=== PATIENT | male | born 1970 | race Caucasian/White ===

== ENCOUNTER 2023-10-20 20:16 | Emergency (ER) | payer OTHER, SELFPAY ==
[2023-10-20] VITALS (11 sets, daily range): BP systolic 116–182; BP diastolic 66–96; BMI 27.6
[2023-10-20 20:37] LABS: % Basophils 0.5 % (0-2); % Immature Granulocytes 0.2 % (0-0.5); % Lymphocytes 9.4 % (20.5-51.1); % Monocytes 8.8 % (1.7-9.3); % Neutrophils 81.1 % (42.2-75.2); Absolute Lymphocytes 0.5 10^3/uL (1.2-3.4); Absolute Monocytes 0.5 10^3/uL (0.1-0.6); Absolute Neutrophils 4.5 10^3/uL (1.4-6.5); Hematocrit 40.8 % (39.0-52.0); Hemoglobin 14.8 g/dL (13.0-18.0); Mean Corp Hgb Conc. 36.3 g/dL (33.0-37.0); Mean Corpuscular Hgb 32.7 pg (27.0-31.0); Mean Corpuscular Volume 90.3 fL (80.0-94.0); Mean Platelet Volume 10.4 fL (7.4-10.4); Nucleated Red Blood Cells % 0 % (-); Platelet Count 215 10^3/uL (130-400); Red Blood Cell Count 4.52 10^6/uL (4.70-6.10); Red Cell Dist. Width 13.3 % (11.5-14.5); White Blood Cell Count 5.5 10^3/uL (4.8-10.8)
[2023-10-20] MEDS: D5/0.9% SODIUM CHLORIDE 1000 IV (20:48)
[2023-10-20] MEDS: THIAMINE INJECTION 100 MG IV (20:49)
[2023-10-20] MEDS: ATIVAN 1 MG IV ×2 (20:49→21:20)
[2023-10-20 20:50] LABS: ALT (SGPT) 102 U/L (0-50); AST (SGOT) 488 U/L (17-59); Alkaline Phosphatase 70 U/L (38-126); Blood Urea Nitrogen 9 mg/dl (9-20); Calcium 9.8 mg/dl (8.4-10.2); Carbon Dioxide 23 mmol/L (22-30); Chloride 101 mmol/L (98-107); Estimated Creatinine Clearance > 125 ml/min; Glucose 175 mg/dl (70-99); Sodium 137 mmol/L (135-145); Total Bilirubin 1.8 mg/dl (0.2-1.3); Total Protein 7.3 g/dl (6.3-8.2); eGFR > 60.00
[2023-10-20 20:57] LABS: Lipase 210 U/L (23-300)
[2023-10-20 21:02] LABS: Troponin I < 0.012 ng/ml
--- NOTE | 2023-10-20 21:50 | ED.GENMED ---
History of Present Illness
General
Chief Complaint: Dizziness
Source: patient
Exam Limitations: none
Time Seen by Provider: 10/20/23 20:26
Nursing documentation reviewed up to this point in time: agreed with
History of Present Illness
History of Present Illness:
53 y/o M
h/o htn, hld, prediabetes
alcohol abuse
says he has been drinking more alcohol over the past year than he used to
is going through a divorce. Patient says he has gotten up to at least a pint of vodka daily. He has been sober previously, once was through a 3-day inpatient detox and another type was cold turkey. Patient says that he has been drinking over the
last 2 years but he knows he needs to stop. His last renal drink was last evening around 11 PM. This morning when he went to work he was not feeling well and he did vomit in the morning. He reports feeling shaky and off all day and then around 4
PM started feeling worse so he left work. He came home and tried to drink some different alcohol which was a premixed Coke and injected nose max and he vomited twice. Patient says after that he became panicked that he was can have a low blood
sugar because he does not eat well and then started feeling really anxious, diaphoretic, lightheaded and ultimately called 911. When paramedics arrived his pressure was 230/170 and he was clearly in distress, diaphoretic and anxious with an obvious
tremor. His Accu-Chek was normal. He was initiated IV normal saline. On arrival his blood pressure was 182/96 and he was feeling less overwhelmed. Patient says he was feeling anxious being home by himself that he may and nobody would find
him.
Patient says that he usually works from home and he has noticed that he has had to start drinking alcohol earlier than he used to. Today was different because he went into the office and did not have his usual alcohol in the afternoon
Past History
Past History
ED Past Medical History: HTN and Hypercholesterolemia
ED Past Surgical History: Cholecystectomy
Social History
Tobacco: Non-smoker
Alcohol: Daily
Personal:
Living: with family
Employment: Employed
Review of Systems
Review of Systems
Allergies reviewed?: Yes
All Other Systems: Not applicable
Phy Exam
Physical Exam
Physical Exam:
GENERAL: Alert moderately anxious
EYE: pupils equal and reactive
NECK: Supple
ENT: o/p clr, mmm.
CARDIAC: Minimally tachycardic low 100s
LUNGS: Clear breath sounds bilaterally, no acute respiratory distress, no wheezes/rales/rhonchi
ABDOMEN: Soft, without focal tenderness, no r/g, no cvat, normal bowel sounds
NEUROLOGICAL: Alert and oriented, no focal neuro deficits, tremor at rest
SKIN: Warm and trace beads of sweat on his forehead
MUSCULOSKELETAL: No edema, well perfused. neg shoaib's sign
PSYCH: Slightly tearful at times, anxious, not hallucinating, cooperative
Scores
Withdrawal Assessment of Alcohol
Withdrawal Assessment Completed?: Yes
Nausea and Vomiting: Mild nausea with no vomiting
Tactile Disturbances: None
Tremor: Moderate, with patient's arms extended
Auditory Disturbances: Not present
Paroxysmal Sweats: Beads of sweat obvious on forehead
Visual Disturbances: Not present
Anxiety: Moderately anxious, or guarded, so anxiety is inferred
Headache, Fullness in Head: Not present
Agitation: Normal activity
Orientation and clouding of sensorium: Oriented and can do serial additions
Total CIWA Score: 13
Alcohol Withdrawal Medication Recommendation: Equal to MSAS Score 5-7. Lorazepam 1mg IV or PO NOW & re-assess q2hrs
Course
Orders/Labs/Results
Orders:
Orders
10/20/23 20:24
ECG [Electrocardiogram (*1)] Urgent
Reason for Study: Hypertension, Benign
10/20/23 20:25
EKG- Treatment ONCE
10/20/23 20:31
Complete Blood Count/With Diff Urgent
Comprehensive Metabolic Panel Urgent
Lipase Urgent
Comment: ADD ON
Troponin I Urgent
10/20/23 20:40
Lorazepam [Ativan] 1 mg IV NOW STA
Thiamine Injection 100 mg IV NOW STA
10/20/23 20:43
Add On- LAB Urgent
Comments:: sst in lab
Tests Added?: lipase
10/20/23 21:00
Dextrose 5%/0.9%Sodchl 1000 ml [D5/0.9% Sodium Chloride] 1,000 ml IV Wide Open mls/hr
10/20/23 21:02
US Abdomen Complete/Upper Urgent
Comment:
Reason For Exam: etoh; elev lfts; vomiting
10/20/23 21:18
Lorazepam [Ativan] 1 mg IV NOW STA
10/20/23 21:19
Lorazepam [Ativan] 2 mg .ROUTE .STK-MED ONE
10/20/23 21:21
0.9% Sodium Chloride 1000 ml [Nss] 1,000 ml IV BOLUS
10/20/23 21:54
EKG- Treatment ONCE
10/20/23 23:30
Electrocardiogram (*1) Urgent
Reason for Study: Abnormal EKG
Troponin I Urgent
10/21/23 01:44
Diazepam [Valium] 5 mg PO NOW STA
Abnormal Lab Results
10/20/23
20:31
RBC 4.52 L 10^6/uL
(4.70-6.10)
MCH 32.7 H pg
(27.0-31.0)
Absolute Lymphs (auto) 0.5 L 10^3/uL
(1.2-3.4)
Neutrophils % 81.1 H %
(42.2-75.2)
Lymphocytes % 9.4 L %
(20.5-51.1)
Glucose 175 H mg/dl
(70-99)
Total Bilirubin 1.8 H mg/dl
(0.2-1.3)
AST 488 H U/L
(17-59)
ALT 102 H U/L
(0-50)
10/20/23 20:31
10/20/23 20:31
Vital Signs
Initial and Last Documented VS:
Initial Vital Signs
BP
182/96
10/20/23 20:19
Last Documented Vital Signs
Temp Pulse Resp BP Pulse Ox
98.1 F 72 14 152/86 97
10/20/23 22:00 10/21/23 01:40 10/21/23 01:40 10/21/23 01:40 10/21/23 01:45
MDM/Problems Addressed
Differential Diagnosis Includes:
Alcohol withdrawal, hypertensive urgency or emergency, near syncope
MDM/Problems Addressed:
53-year-old male alcohol dependent presents with symptoms of increased agitation, anxiety, shakiness, lightheadedness, nausea and vomiting in the setting of not having had alcohol earlier this morning/midafternoon as he has been recently. Patient
has uptick to his amount of alcohol daily over symptoms.
As he has been under stress. He tried to drink some alcohol when he got home this evening but vomited. He then became very acutely anxious and felt like he was going to pass out. On EMS arrival his blood pressure was severely elevated but it had
come down over time and on arrival was 180/90. Patient has an obvious tremor. His CIWA scores somewhere between 10 and 13. His EKG shows lateral T wave inversions in V4 V5 and V6 in 1 and aVL concerning for ischemia. There is no depressions or
elevations. He never had any chest pain. Patient's initial screening shows only minimally elevated liver markers with a normal lipase. His troponin was negative. Abdominal ultrasound showed fatty hepatic infiltration. Patient's alcohol
withdrawal was treated with Ativan IV, 1 mg x 2 doses and he had moderate improvement in his symptoms. Blood pressure improved to 130/70 and I discussed the case with ED attending and we agreed to repeat the EKG and troponin the 3-hour aram to be
sure that the T wave inversions were not progressing. I suspect since his repeat EKG shows normalization of those T waves that he had lateral ischemia secondary to hypertensive urgency/emergency. Patient had a negative second troponin and again
has had no chest pain throughout his ED stay with normalization of his blood pressure. I did offer him admission for withdrawal symptoms, telemetry monitoring etc. which the patient declined. I offered him a consultation with [facility] for inpatient
detox he also mind. Speak with the [facility] team guarding outpatient treatment and they will contact him to for now the patient sounds as if he would like to to avoid drinking alcohol especially this weekend because of a work event that he has.
However is very concerning should the patient tried to go cold turkey so I will give him a very short course of Ativan to take as needed. He contracts for safety that he will not take the Ativan and drink alcohol and he is aware of the sedation
risk. Patient was discharged to be picked up via [employer]. On discharge I noticed a very subtle tremor and he feels a slightly anxious, his other CIWA indicators were negative. Patient will be discharged with a p.o. dose of Valium
*Critical Care Note
Total Time (30-74mins, 75-104mins- exclusive of procedures): Not Applicable
ED Attending Note
-
Portions of this chart may have been created with voice recognition software.� Occasional wrong word or��sound alike� substitutions may have occurred due to the inherent limitations of voice recognition software.
Discharge Plan
Departure
Patient Disposition: Home (Routine Discharge)
Date of Disposition: 10/21/23
Time of Disposition: 01:30
Patient with high blood pressure during this ER visit?: No
Condition: Fair
Discharge Problem:
Alcohol withdrawal, Elevated blood pressure reading
Instructions: Alcohol Use Disorder (DC), BLOOD PRESSURE
Prescriptions:
New
lorazepam [Ativan] 1 mg tablet
1 mg PO TID PRN (Reason: alcohol withdrawal) Qty: 7 0RF
No Action
aspirin [Aspir-81] 81 mg Tablet,Delayed Release (Dr/Ec)
81 mg PO DAILY
Referrals:
Miguelito Stuart MD [Family Provider] - Follow up in 2-3 days
Activity Restrictions/Additional Instructions:
YOUR SYPMTOMS ARE CONCERNING FOR ALCOHOL WITHDRAWAL
IT IS VERY DANGEROUS TO QUIT COLD TURKEY
YOU SHOULD MAKE SURE THAT IF YOU ARE [place] TO AVOID DRINKING ALCOHOL AND HAVE SYPMTOMS LIKE SHAKING, NAUSEA, SWEATINESS, AGITATION
YOU CAN USE ATIVAN 1 MG EVERY 4-6 HOURS NEEDED
BUT IF YOUR SYPMTOMS ARE SEVERE OR GETTING WORSE, YOU NEED TO RETURN TO THE ER IMMEDIATELY
ALSO RETURN FOR CHEST PAIN, SHORTNESS OF BREATH, PASSING OUT, REPEATD VOMITING, HALLUCINATIONS ETC
PLEASE FOLLOW UP WITH THE [facility] SPECIALIST TO HELP YOU GET RESOURCES FOR OUTPATIENT TREATMENT
RETURN AT ANY POINT IF YOU FEEL THAT YOU NEED HELP
YOUR LIVER MARKERS WERE ELEVATED, NOT SIGNFIICANTLY
YOU SHOULD FOLLOW UPW ITH YOUR DOCTOR
Interventions
Interventions:
*General Assessment Last Done: 10/20/23 20:25
*Neglect/Abuse Screening Last Done: 10/20/23 20:25
*ED COVID-19 Vaccine History Last Done: 10/20/23 20:18
ED- Neurological Assessment Last Done: 10/20/23 23:00
ED- Cardiac Assessment Last Done: 10/20/23 23:00
ED Swallowing Screen Last Done: 10/21/23 01:40
Discharge Date and Time
Print Language: CAPE VERDEAN
[2023-10-20] MEDS: NSS 1000 IV (22:06)
[2023-10-21] VITALS (8 sets, daily range): BP systolic 123–152; BP diastolic 58–86
[2023-10-21 00:46] LABS: Troponin I < 0.012 ng/ml
[2023-10-21] MEDS: VALIUM 5 MG PO (01:58)
== END 2023-10-21 02:00 | disposition home or self-care (01) ==
LOC: EMR 20:16
PROVIDERS: Physician Assistant; EMERGENCY PHYSICIAN Emergency Medicine; FAMILY PHYSICIAN Internal Medicine
DX: F10.939 Alcohol use, unspecified with withdrawal, unspecified (principal); I10 Essential (primary) hypertension; E78.00 Pure hypercholesterolemia, unspecified; R73.03 Prediabetes; Z90.49 Acquired absence of other specified parts of digestive tract
CPT/HCPCS: 99284; 96374; 96375; 96376; 96361; 76700; 80053; 83690; 84484; 85025; 93005